=== PATIENT | female | born 1935 | race African-American/Black ===

== ENCOUNTER 2024-01-24 10:44 | Emergency (ER) | payer OTHER ==
[~2024-01-24] VITALS: Ht 175.3 cm; Wt 64.0 kg
[2024-01-24 10:49] VITALS: TEMP 97.8; O2SAT 100
[2024-01-24] MEDS: ACETAMINOPHEN 325MG TABLET PO STA (13:23)
[2024-01-24 14:24] LABS: BASOPHILS % 0.9 % (0.0-2.0); EOSINOPHILS % 2.8 % (0.0-5.0); HEMOGLOBIN. 9.1 g/dL (12.0-16.0); MEAN CORPUSCULAR HEMOGLOBIN 31.3 pg (28.0-32.0); MEAN CORPUSCULAR HGB CONC 33.7 g/dL (31.0-37.0); MEAN CORPUSCULAR VOLUME 92.9 fL (81.0-99.0); MONOCYTES % 10.9 % (2.0-8.0); NEUTROPHILS % 67.4 % (40.0-76.0); PLATELET 286 x1000/uL (130-400); RED CELL DISTRIBUTION WIDTH 15.6 % (11.6-14.6)
[2024-01-24 14:33] LABS: CHLORIDE 108 mEq/L (98-107); POTASSIUM 4.3 mEq/L (3.5-5.1); SODIUM 136 mEq/L (136-145)
[2024-01-24 14:34] LABS: CARBON DIOXIDE 23 mEq/L (21-32)
[2024-01-24 14:35] LABS: CALCIUM 9.5 mg/dL (8.7-10.4)
[2024-01-24 14:39] LABS: CREATININE 1.3 mg/dL (0.6-1.0); GLUCOSE 151 mg/dL (70-105)
[2024-01-24 14:40] LABS: TROPONIN I HIGH SENSITIVITY 7 ng/L (3.0-34); UREA NITROGEN BLOOD 16 mg/dL (9-23)
[2024-01-24 14:41] LABS: ALANINE AMINOTRANSFERASE < 7 IU/L (10-49); ALBUMIN 3.7 g/dL (3.2-4.8); ASPARTATE AMINOTRANSFERASE 12 IU/L (<34)
[2024-01-24 14:42] LABS: BILIRUBIN TOTAL 0.5 mg/dL (0.1-1.0); PROTEIN TOTAL 7.5 g/dL (6.0-8.3)
[2024-01-24] MEDS ORDERED: SODIUM CHLORIDE 0.9% 1,000 ML IV ONE (15:00)
[2024-01-24 15:40] LABS: CLARITY URINE CLEAR (CLEAR); COLOR URINE YELLOW (YELLOW); GLUCOSE URINE 1+ (NEGATIVE); KETONES URINE NEGATIVE (NEGATIVE); LEUKOCYTE ESTERASE URINE NEGATIVE (NEGATIVE); NITRITE URINE NEGATIVE (NEGATIVE); OCCULT BLOOD URINE NEGATIVE (NEGATIVE); PROTEIN URINE 1+ (NEGATIVE); SPECIFIC GRAVITY URINE 1.012 (1.005-1.030); UROBILINOGEN URINE 0.2 E.U./dL (0.2-1.0)
[2024-01-24 15:56] LABS: BACTERIA URINE NONE SEEN; RBC URINE NONE SEEN /hpf (0-2); SQUAMOUS EPITHELIAL CELL URINE RARE /lpf (RARE/1+); WBC URINE 0-2 /hpf (0-2)
[2024-01-24 16:50] VITALS: BP 144/57; PULSE 68; RESP 14
== END 2024-01-24 17:34 | disposition short-term general hospital (02) ==
LOC: ER 10:44 → EDBEDREQ 16:25 → ER 17:34
DX: R53.1 Weakness (principal); M25.562 Pain in left knee; D64.9 Anemia, unspecified; N28.9 Disorder of kidney and ureter, unspecified; E11.9 Type 2 diabetes mellitus without complications; I25.2 Old myocardial infarction; R41.82 Altered mental status, unspecified
CPT/HCPCS: 99285; 70450; 71045; 80053; 81003; 83880; 85025; 84484; 36415; 72170; 73562; 93005; C1893